=== PATIENT | male | born 1990 | race Caucasian/White ===

== ENCOUNTER 2016-06-24 08:02 | Emergency (ER) | payer SELFPAY ==
[~2016-06-24] VITALS: Ht 175.3 cm; Wt 88.6 kg
[~2016-06-24 08:02] MED LIST: AMOXICILLIN500 MG PO; BACTRIM1 TAB OR; BUSPIRONE10 MG PO; FLEXERIL PO; LISINOPRIL10 MG PO; LORTAB 5/3255 MG PO; LORTAB 7.57.5 MG PO; MOTRIN800 MG PO; NO HOME MEDS; PENICILLN VK500 MG PO; PREDNISONE50 MG OR; PROAIR HFA IN; ULTRAM50 M1 PO; ZESTRIL10 M1 PO
[2016-06-24 08:42] VITALS: BP 149/95
[2016-06-24] MEDS ORDERED: LORTAB 10-325 M1 TAB PO (09:00)
[2016-06-24] MEDS ORDERED: AMOXICILLIN500 MG PO (09:17)
== END 2016-06-24 09:45 | disposition home or self-care (01) | DRG 605 ==
LOC: ED 08:02
PROC: 0HQGXZZ Repair Left Hand Skin, External Approach (ICD-10-PCS; principal; 2016-06-24)
PROC: 2W3KX1Z Immobilization of Left Finger using Splint (ICD-10-PCS; 2016-06-24)
DX: S61.211A Laceration without foreign body of left index finger without damage to nail, initial encounter (principal); S60.022A Contusion of left index finger without damage to nail, initial encounter; W23.1XXA Caught, crushed, jammed, or pinched between stationary objects, initial encounter; Y93.89 Activity, other specified; Y92.89 Other specified places as the place of occurrence of the external cause

== ENCOUNTER 2018-05-11 06:11 | Emergency (ER) | payer OTHER ==
[~2018-05-11] VITALS: Ht 175.3 cm; Wt 92.7 kg
[~2018-05-11 06:11] MED LIST changes: +LORTAB 10-325 M1 TAB PO
[2018-05-11] MEDS ORDERED: ZPAK PO (07:13)
[2018-05-11] MEDS ORDERED: CHERATUSSIN PO (07:13)
[2018-05-11 07:17] VITALS: BP 141/97
== END 2018-05-11 07:26 | disposition home or self-care (01) ==
LOC: ED 06:11
DX: J06.9 Acute upper respiratory infection, unspecified (principal); R05 Cough; R07.89 Other chest pain; F17.210 Nicotine dependence, cigarettes, uncomplicated

== ENCOUNTER 2019-01-21 13:49 | Emergency (ER) | payer OTHER ==
[~2019-01-21] VITALS: Ht 175.3 cm; Wt 87.0 kg
[~2019-01-21 13:49] MED LIST changes: +CHERATUSSIN PO; +ZPAK PO
[2019-01-21] MEDS ORDERED: MEDDOSEPAK PO (14:47)
[2019-01-21] MEDS ORDERED: KEFLEX500 M1 PO (14:47)
[2019-01-21 14:50] VITALS: BP 178/92
[2019-01-21] MEDS ORDERED: TRILEPTAL150 MG PO (14:52)
[2019-01-21] MEDS ORDERED: ROBITUSSIN AC10 ML PO (14:52)
[2019-01-21] MEDS ORDERED: ATOMOXETINE25 MG (14:53)
== END 2019-01-21 14:55 | disposition home or self-care (01) ==
LOC: ED 13:49
DX: T63.481A Toxic effect of venom of other arthropod, accidental (unintentional), initial encounter (principal); L03.113 Cellulitis of right upper limb; I10 Essential (primary) hypertension; F17.210 Nicotine dependence, cigarettes, uncomplicated

== ENCOUNTER 2019-01-25 12:59 | Emergency (ER) | payer OTHER ==
[~2019-01-25] VITALS: Ht 175.3 cm; Wt 86.0 kg
[~2019-01-25 12:59] MED LIST changes: +ATOMOXETINE25 MG; +KEFLEX500 M1 PO; +MEDDOSEPAK PO; +ROBITUSSIN AC10 ML PO; +TRILEPTAL150 MG PO
[2019-01-25] MEDS ORDERED: BACTRIM DS1 TAB PO (14:39)
[2019-01-25] MEDS ORDERED: KEFLEX500 M1 PO (14:39)
[2019-01-25 15:15] VITALS: BP 151/111
== END 2019-01-25 15:15 | disposition home or self-care (01) ==
LOC: ED 12:59
DX: L02.511 Cutaneous abscess of right hand (principal); I10 Essential (primary) hypertension; F17.200 Nicotine dependence, unspecified, uncomplicated; Z91.19 Patient's noncompliance with other medical treatment and regimen

== ENCOUNTER 2019-10-07 00:14 | Emergency (ER) | payer OTHER ==
[~2019-10-07] VITALS: Ht 175.3 cm; Wt 86.3 kg
[~2019-10-07 00:14] MED LIST changes: +BACTRIM DS1 TAB PO
[2019-10-07] MEDS ORDERED: PERCOCET 5/325M1 TAB PO (01:03)
[2019-10-07] MEDS ORDERED: KEFLEX500 M1 PO (01:03)
[2019-10-07] MEDS ORDERED: BACTRIM DS1 TAB PO (01:03)
[2019-10-07 01:25] VITALS: BP 177/101
== END 2019-10-07 01:25 | disposition home or self-care (01) ==
LOC: ED 00:14
DX: L02.416 Cutaneous abscess of left lower limb (principal); L02.512 Cutaneous abscess of left hand; I10 Essential (primary) hypertension; F17.210 Nicotine dependence, cigarettes, uncomplicated

== ENCOUNTER 2020-03-31 01:33 | Emergency (ER) | payer OTHER ==
[~2020-03-31] VITALS: Ht 175.3 cm; Wt 86.3 kg
[~2020-03-31 01:33] MED LIST changes: +PERCOCET 5/325M1 TAB PO
[2020-03-31] MEDS ORDERED: DOXYCYCL HYC100 MG PO ×2 (02:44→03:02)
[2020-03-31 03:04] VITALS: BP 159/100
== END 2020-03-31 03:05 | disposition home or self-care (01) ==
LOC: ED 01:33
DX: L03.011 Cellulitis of right finger (principal); I10 Essential (primary) hypertension; F17.200 Nicotine dependence, unspecified, uncomplicated